=== PATIENT | male | born 1955 | race Two or more races ===

== ENCOUNTER 2021-01-15 15:48 | Inpatient (IN) | payer MEDICAID ==
[~2021-01-15] VITALS: Ht 182.9 cm; Wt 82.5 kg
[2021-01-15] MEDS ORDERED: methylPREDNISolone SOD SUCC 125 MG/2 ML VL IV ONE (16:30)
[2021-01-15 16:32] LABS: Basophils # (auto) 0 10 ^3/uL (0-0.2); Basophils % (auto) 0.3 % (0.0-2.0); Eosinophils # (auto) 0 10 ^3/uL (0-0.8); Eosinophils % (auto) 0.3 % (0.0-7.0); Hematocrit 40.3 % (41.0-53.0); Hemoglobin 13.4 g/dL (13.5-17.5); Lymphocytes # (auto) 0.6 10 ^3/uL (0.4-5.4); Lymphocytes % (auto) 4.5 % (10.0-50.0); Mean Corpuscular Hemoglobin 30.5 pg (28.0-32.0); Mean Corpuscular Hgb Conc. 33.3 g/dL (32.0-36.0); Mean Corpuscular Volume 91.7 fL (80.0-100.0); Monocytes # (auto) 0.8 10 ^3/uL (0-1.3); Monocytes % (auto) 5.4 % (0.0-12.0); Neutrophils % (auto) 89.5 % (37.0-80.0); Nucleated Red Blood Cells % 0.2 %; Red Blood Cells 4.39 10^6/uL (4.5-5.90); Red Cell Distribution Width 13.5 % (11.8-14.3); White Blood Cell 14.5 10^3/uL (4.4-10.8)
[2021-01-15] MEDS ORDERED: AZITHROMYCIN 500MG/ 250ML 250 ML IV ONE (17:30)
[2021-01-15] MEDS ORDERED: CHOLECALCIFEROL (VITD3) 2,000 UNIT CAP/TAB PO ONE (17:30)
[2021-01-15] MEDS ORDERED: ASCORBIC ACID 500 MG TAB PO ONE (17:30)
[2021-01-15] MEDS ORDERED: ZINC SULFATE 220mg CAP or TAB PO ONE (17:30)
[2021-01-15] MEDS ORDERED: REMDESIVIR PER PHARMACY 0 ML IV SCH (17:30)
[2021-01-15 17:36] LABS: Albumin 1.8 g/dL (3.4-5.0); Calcium 7.3 mg/dL (8.5-10.1)
[2021-01-15 17:41] LABS: BUN/Creatinine Ratio 27.6; Bilirubin, Total 0.6 mg/dL (0.2-1.0)
[2021-01-15] MEDS ORDERED: ENOXAPARIN SOD 100 MG/1 ML SYRINGE SC ONE (17:45)
[2021-01-15 19:32] LABS: CRP High Sensitivity > 19.0 mg/dL (< 0.3)
[2021-01-15] MEDS ORDERED: HYDROcodone-ACET 5/325MG TAB PO PRN (21:45)
[2021-01-15] MEDS ORDERED: DOCUSATE SOD 100 MG CAP PO PRN (21:45)
[2021-01-15] MEDS ORDERED: ALBUTEROL SULF HFA 90MCG INH 200DOSE IN PRN (21:45)
[2021-01-15] MEDS ORDERED: hydrALAZINE HCL 20 MG/ML VL IV PRN (21:45)
[2021-01-15] MEDS ORDERED: ACETAMINOPHEN 500 MG TAB PO PRN (21:45)
[2021-01-15] MEDS ORDERED: ONDANSETRON HCL 4 MG/2 ML VIAL IV PRN (21:45)
[2021-01-15 21:54] VITALS: BP 124/62
[2021-01-15] MEDS ORDERED: BUDESONIDE (INHALATION) 180 MCG IH IN SCH (22:00)
[2021-01-15] MEDS: SODIUM CHLOR 0.9% PF (SALINE LOCK) 10ML VIAL/SYR IV SCH (22:11)
[2021-01-15] MEDS: ALBUMIN 25% 50 ML IV SCH (22:39)
[2021-01-15] MEDS: FAMOTIDINE (10MG/ML) 2ML VL IV SCH (22:45)
[2021-01-15] MEDS: methylPREDNISolone SOD SUCC 40 MG/ML VL IV SCH (22:46)
[2021-01-15] MEDS ORDERED: MORPHINE SULFATE INJECTION 2 MG/ML SYRG IV PRN (23:45)
[2021-01-15] MEDS ORDERED: NITROGLYCERIN 0.4 MG SL TAB SL PRN (23:45)
[2021-01-16] MEDS: SODIUM CHLOR 0.9% PF (SALINE LOCK) 10ML VIAL/SYR IV SCH ×3 (06:00→22:22)
[2021-01-16] MEDS: ALBUMIN 25% 50 ML IV SCH ×2 (07:02→14:42)
[2021-01-16] MEDS: methylPREDNISolone SOD SUCC 40 MG/ML VL IV SCH ×2 (07:03→14:42)
[2021-01-16] MEDS ORDERED: cefTRIAXone 1GM/50ML D5W 50 ML IV SCH (09:00)
[2021-01-16 09:44] LABS: Basophils # (auto) 0 10 ^3/uL (0-0.2); Basophils % (auto) 0.2 % (0.0-2.0); Eosinophils # (auto) 0 10 ^3/uL (0-0.8); Hemoglobin 11.9 g/dL (13.5-17.5); Lymphocytes # (auto) 0.5 10 ^3/uL (0.4-5.4); Lymphocytes % (auto) 5.2 % (10.0-50.0); Mean Corpuscular Hemoglobin 30.6 pg (28.0-32.0); Mean Corpuscular Volume 92.7 fL (80.0-100.0); Monocytes # (auto) 0.2 10 ^3/uL (0-1.3); Monocytes % (auto) 2.3 % (0.0-12.0); Neutrophils # (auto) 9.3 10 ^3/uL (1.6-8.6); Neutrophils % (auto) 92.3 % (37.0-80.0); Nucleated Red Blood Cells % 0.1 %; Red Blood Cells 3.88 10^6/uL (4.5-5.90); Red Cell Distribution Width 13.8 % (11.8-14.3); White Blood Cell 10.1 10^3/uL (4.4-10.8)
[2021-01-16] MEDS: FAMOTIDINE (10MG/ML) 2ML VL IV SCH ×2 (09:57→22:23)
[2021-01-16] MEDS: ASPirin 81 mg TAB PO SCH (09:58)
[2021-01-16] MEDS: MULTIPLE VITAMIN TAB PO SCH (09:58)
[2021-01-16] MEDS ORDERED: ASCORBIC ACID 1,000 MG TAB PO SCH (10:00)
[2021-01-16] MEDS ORDERED: CHOLECALCIFEROL (VITD3) 2,000 UNIT CAP/TAB PO SCH (10:00)
[2021-01-16] MEDS ORDERED: ZINC SULFATE 220mg CAP or TAB PO SCH (10:00)
[2021-01-16] MEDS ORDERED: IOHEXOL 350 MG/ML 100ML IJ ONE (10:04)
[2021-01-16 10:51] LABS: Albumin 1.9 g/dL (3.4-5.0); Calcium 7.2 mg/dL (8.5-10.1); Potassium 3.8 mmol/L (3.5-5.1)
[2021-01-16 10:56] LABS: BUN/Creatinine Ratio 32.2; Bilirubin, Total 0.5 mg/dL (0.2-1.0); Total Protein 6.7 g/dL (6.4-8.2)
[2021-01-16] MEDS: AZITHROMYCIN 500MG/ 250ML 250 ML IV SCH (11:28)
[2021-01-16] MEDS ORDERED: ENOXAPARIN SOD 100 MG/1 ML SYRINGE SC ONE (12:30)
[2021-01-16 20:50] VITALS: BP 125/70
[2021-01-16 22:00] VITALS: BP 125/70
[2021-01-16] MEDS: PIPERACILLIN-TAZO 4.5GM 100 ML IV SCH (22:22)
[2021-01-16] MEDS: ENOXAPARIN SOD 100 MG/1 ML SYRINGE SC SCH (22:22)
[2021-01-17 00:09] LABS: Urine Bacteria NONE SEEN /hpf (None Seen); Urine Blood Negative /uL (Negative); Urine Specific Gravity 1.032 (1.001-1.035); Urine WBC 1 /hpf (0 - 3)
[2021-01-17 05:00] VITALS: BP 113/59
[2021-01-17] MEDS: PIPERACILLIN-TAZO 4.5GM 100 ML IV SCH ×3 (05:04→21:17)
[2021-01-17] MEDS: SODIUM CHLOR 0.9% PF (SALINE LOCK) 10ML VIAL/SYR IV SCH ×3 (05:04→21:16)
[2021-01-17 05:56] LABS: Basophils # (auto) 0 10 ^3/uL (0-0.2); Basophils % (auto) 0.2 % (0.0-2.0); Eosinophils # (auto) 0 10 ^3/uL (0-0.8); Hematocrit 33.6 % (41.0-53.0); Hemoglobin 11.5 g/dL (13.5-17.5); Lymphocytes # (auto) 0.7 10 ^3/uL (0.4-5.4); Lymphocytes % (auto) 4.5 % (10.0-50.0); Mean Corpuscular Hemoglobin 31.6 pg (28.0-32.0); Mean Corpuscular Hgb Conc. 34.2 g/dL (32.0-36.0); Mean Corpuscular Volume 92.4 fL (80.0-100.0); Monocytes # (auto) 1.1 10 ^3/uL (0-1.3); Monocytes % (auto) 6.5 % (0.0-12.0); Neutrophils # (auto) 14.9 10 ^3/uL (1.6-8.6); Neutrophils % (auto) 88.8 % (37.0-80.0); Red Blood Cells 3.63 10^6/uL (4.5-5.90); Red Cell Distribution Width 13.7 % (11.8-14.3); White Blood Cell 16.7 10^3/uL (4.4-10.8)
[2021-01-17 08:00] VITALS: BP 106/66
[2021-01-17 09:00] VITALS: BP 106/66
[2021-01-17] MEDS ORDERED: methylPREDNISolone SOD SUCC 40 MG/ML VL IV SCH (10:00)
[2021-01-17] MEDS: AZITHROMYCIN 500MG/ 250ML 250 ML IV SCH (10:47)
[2021-01-17] MEDS: MULTIPLE VITAMIN TAB PO SCH (10:47)
[2021-01-17] MEDS: FAMOTIDINE (10MG/ML) 2ML VL IV SCH ×2 (10:47→21:16)
[2021-01-17] MEDS: ASPirin 81 mg TAB PO SCH (10:47)
[2021-01-17] MEDS: ENOXAPARIN SOD 100 MG/1 ML SYRINGE SC SCH ×2 (10:48→21:17)
[2021-01-17 14:14] VITALS: BP 114/66
[2021-01-17 16:38] VITALS: BP 114/66
[2021-01-17] MEDS: MORPHINE SULFATE INJECTION 2 MG/ML SYRG IV PRN (20:32)
[2021-01-17 22:09] VITALS: BP 118/63
[2021-01-18] MEDS: MORPHINE SULFATE INJECTION 2 MG/ML SYRG IV PRN ×4 (00:30→23:34)
[2021-01-18 05:26] VITALS: BP 134/76
[2021-01-18] MEDS: SODIUM CHLOR 0.9% PF (SALINE LOCK) 10ML VIAL/SYR IV SCH ×3 (05:27→22:12)
[2021-01-18] MEDS: PIPERACILLIN-TAZO 4.5GM 100 ML IV SCH ×3 (05:36→22:00)
[2021-01-18 08:00] VITALS: BP 131/69
[2021-01-18 09:09] VITALS: BP 131/69
[2021-01-18] MEDS: MULTIPLE VITAMIN TAB PO SCH (09:47)
[2021-01-18] MEDS: FAMOTIDINE (10MG/ML) 2ML VL IV SCH ×2 (09:47→22:11)
[2021-01-18] MEDS: AZITHROMYCIN 500MG/ 250ML 250 ML IV SCH (09:47)
[2021-01-18] MEDS: ENOXAPARIN SOD 100 MG/1 ML SYRINGE SC SCH ×2 (09:47→22:12)
[2021-01-18] MEDS: ASPirin 81 mg TAB PO SCH (09:47)
[2021-01-18 14:08] VITALS: BP 126/70
[2021-01-18 16:34] VITALS: BP 122/72
[2021-01-18 23:03] VITALS: BP 113/65
[2021-01-19] MEDS: MORPHINE SULFATE INJECTION 2 MG/ML SYRG IV PRN ×5 (04:03→21:27)
[2021-01-19] MEDS: PIPERACILLIN-TAZO 4.5GM 100 ML IV SCH (05:01)
[2021-01-19] MEDS: SODIUM CHLOR 0.9% PF (SALINE LOCK) 10ML VIAL/SYR IV SCH ×3 (05:01→21:25)
[2021-01-19 05:30] VITALS: BP 135/73
[2021-01-19 06:30] LABS: Basophils # (auto) 0 10 ^3/uL (0-0.2); Basophils % (auto) 0.2 % (0.0-2.0); Eosinophils # (auto) 0.1 10 ^3/uL (0-0.8); Eosinophils % (auto) 1.4 % (0.0-7.0); Hematocrit 37.5 % (41.0-53.0); Hemoglobin 12.2 g/dL (13.5-17.5); Lymphocytes # (auto) 0.8 10 ^3/uL (0.4-5.4); Mean Corpuscular Hemoglobin 30.5 pg (28.0-32.0); Mean Corpuscular Hgb Conc. 32.6 g/dL (32.0-36.0); Mean Corpuscular Volume 93.5 fL (80.0-100.0); Monocytes # (auto) 0.6 10 ^3/uL (0-1.3); Monocytes % (auto) 6.8 % (0.0-12.0); Neutrophils # (auto) 6.7 10 ^3/uL (1.6-8.6); Neutrophils % (auto) 81.6 % (37.0-80.0); Nucleated Red Blood Cells % 0.1 %; Red Blood Cells 4.02 10^6/uL (4.5-5.90); White Blood Cell 8.2 10^3/uL (4.4-10.8)
[2021-01-19 06:50] LABS: Calcium 7.6 mg/dL (8.5-10.1); Potassium 4.7 mmol/L (3.5-5.1)
[2021-01-19 06:54] LABS: Albumin 2.1 g/dL (3.4-5.0); BUN/Creatinine Ratio 24.4
[2021-01-19 06:56] LABS: Bilirubin, Total 0.7 mg/dL (0.2-1.0); Total Protein 6.2 g/dL (6.4-8.2)
[2021-01-19 09:00] VITALS: BP 123/72
[2021-01-19] MEDS: FAMOTIDINE (10MG/ML) 2ML VL IV SCH ×2 (09:53→21:25)
[2021-01-19] MEDS: ASPirin 81 mg TAB PO SCH (09:54)
[2021-01-19] MEDS: MULTIPLE VITAMIN TAB PO SCH (09:54)
[2021-01-19] MEDS: ENOXAPARIN SOD 100 MG/1 ML SYRINGE SC SCH ×2 (09:54→21:26)
[2021-01-19] MEDS: AZITHROMYCIN 500MG/ 250ML 250 ML IV SCH (10:00)
[2021-01-19] MEDS ORDERED: REMDESIVIR PER PHARMACY 0 ML IV SCH (10:45)
[2021-01-19 13:00] VITALS: BP 115/66
[2021-01-19] MEDS ORDERED: CIPROFLOXACIN HCL 500 MG TAB PO ONE ×2 (13:00→22:00)
[2021-01-19] MEDS ORDERED: FUROSEMIDE 20 MG/2 ML VIAL IV ONE (13:00)
[2021-01-19] MEDS ORDERED: REMDESIVIR 200 MG in NS 210ml LOADING DOSE ADULT IV ONE (15:00)
[2021-01-19] MEDS: ERGOCALCIFEROL 50,000 UNIT(1.25MG) CAP PO SCH (15:20)
[2021-01-19 17:00] VITALS: BP 128/71
[2021-01-19] MEDS ORDERED: CIPROFLOXACIN HYDROCHLORIDE 250 MG TAB PO SCH (18:00)
[2021-01-19] MEDS: ALBUTEROL SULF HFA 90MCG INH 200DOSE IN PRN (20:14)
[2021-01-19 22:03] VITALS: BP 106/60
[2021-01-20] MEDS: MORPHINE SULFATE INJECTION 2 MG/ML SYRG IV PRN ×2 (01:17→05:15)
[2021-01-20 05:00] VITALS: BP 111/69
[2021-01-20] MEDS: SODIUM CHLOR 0.9% PF (SALINE LOCK) 10ML VIAL/SYR IV SCH ×3 (06:11→21:19)
[2021-01-20 06:30] LABS: Potassium 4.8 mmol/L (3.5-5.1)
[2021-01-20 06:48] LABS: Albumin 2.2 g/dL (3.4-5.0); BUN/Creatinine Ratio 22.5; Bilirubin, Total 0.7 mg/dL (0.2-1.0); Calcium 8.2 mg/dL (8.5-10.1); Total Protein 6.6 g/dL (6.4-8.2)
[2021-01-20] MEDS: ALBUTEROL SULF HFA 90MCG INH 200DOSE IN PRN ×2 (08:32→18:47)
[2021-01-20 09:00] VITALS: BP 120/71
[2021-01-20] MEDS ORDERED: IVERMECTIN 3 MG TAB PO SCH (10:00)
[2021-01-20] MEDS ORDERED: CHOLECALCIFEROL (VITD3) 2,000 UNIT CAP/TAB PO SCH (10:00)
[2021-01-20] MEDS: FUROSEMIDE 20 MG/2 ML VIAL IV SCH (10:17)
[2021-01-20] MEDS: DexAMETHasone SOD PHOS 10MG/1ML VIAL INJ IV SCH (10:17)
[2021-01-20] MEDS: CIPROFLOXACIN HCL 500 MG TAB PO SCH ×2 (10:17→17:29)
[2021-01-20] MEDS: FAMOTIDINE (10MG/ML) 2ML VL IV SCH ×2 (10:17→21:19)
[2021-01-20] MEDS: MULTIPLE VITAMIN TAB PO SCH (10:19)
[2021-01-20] MEDS: ENOXAPARIN SOD 100 MG/1 ML SYRINGE SC SCH ×2 (10:19→21:20)
[2021-01-20] MEDS: ASCORBIC ACID 1,000 MG TAB PO SCH (10:19)
[2021-01-20] MEDS: ZINC SULFATE 220mg CAP or TAB PO SCH (10:19)
[2021-01-20] MEDS: ASPirin 81 mg TAB PO SCH (10:19)
[2021-01-20] MEDS ORDERED: REMDESIVIR PER PHARMACY 0 ML IV SCH (11:45)
[2021-01-20 13:00] VITALS: BP 112/68
[2021-01-20] MEDS ORDERED: REMDESIVIR 100mg 100 MG in SODIUM CHL 0.9% 230 ML IV SCH (15:00)
[2021-01-20] MEDS ORDERED: REMDESIVIR 200 MG in NS 210ml LOADING DOSE ADULT IV ONE (15:00)
[2021-01-20 16:53] VITALS: BP 105/66
[2021-01-20 22:00] VITALS: BP 114/60
[2021-01-21] VITALS (7 sets, daily range): BP systolic 106–116; BP diastolic 61–71
[2021-01-21] MEDS: MORPHINE SULFATE INJECTION 2 MG/ML SYRG IV PRN ×3 (03:04→22:36)
[2021-01-21] MEDS: SODIUM CHLOR 0.9% PF (SALINE LOCK) 10ML VIAL/SYR IV SCH ×3 (06:07→21:34)
[2021-01-21 07:06] LABS: Potassium 4.6 mmol/L (3.5-5.1)
[2021-01-21 07:16] LABS: Albumin 2.3 g/dL (3.4-5.0); BUN/Creatinine Ratio 29.6; Bilirubin, Total 0.4 mg/dL (0.2-1.0); Total Protein 6.8 g/dL (6.4-8.2)
[2021-01-21] MEDS: CIPROFLOXACIN HCL 500 MG TAB PO SCH ×2 (08:02→17:38)
[2021-01-21] MEDS: FUROSEMIDE 20 MG/2 ML VIAL IV SCH ×2 (10:00→10:26)
[2021-01-21] MEDS: DexAMETHasone SOD PHOS 10MG/1ML VIAL INJ IV SCH (10:26)
[2021-01-21] MEDS: FAMOTIDINE (10MG/ML) 2ML VL IV SCH ×2 (10:27→21:33)
[2021-01-21] MEDS: ASPirin 81 mg TAB PO SCH (10:29)
[2021-01-21] MEDS: MULTIPLE VITAMIN TAB PO SCH (10:30)
[2021-01-21] MEDS: ASCORBIC ACID 1,000 MG TAB PO SCH (10:30)
[2021-01-21] MEDS: ZINC SULFATE 220mg CAP or TAB PO SCH (10:30)
[2021-01-21] MEDS: ENOXAPARIN SOD 100 MG/1 ML SYRINGE SC SCH ×2 (10:30→21:34)
[2021-01-21] MEDS: ALBUTEROL SULF HFA 90MCG INH 200DOSE IN PRN ×2 (13:59→21:48)
[2021-01-21] MEDS: REMDESIVIR 100mg 100 MG in SODIUM CHL 0.9% 230 ML IV SCH (15:15)
[2021-01-22] MEDS: OXYCODONE W/ ACETAMINOPHEN 5/325MG TABLET PO PRN (02:05)
[2021-01-22] MEDS: MORPHINE SULFATE INJECTION 2 MG/ML SYRG IV PRN ×2 (03:57→11:44)
[2021-01-22 05:00] VITALS: BP 111/65
[2021-01-22 06:04] LABS: Potassium 4.3 mmol/L (3.5-5.1)
[2021-01-22] MEDS: ALBUTEROL SULF HFA 90MCG INH 200DOSE IN PRN (06:08)
[2021-01-22 06:11] LABS: Albumin 2.2 g/dL (3.4-5.0); BUN/Creatinine Ratio 32.9; Bilirubin, Total 0.3 mg/dL (0.2-1.0); Calcium 7.8 mg/dL (8.5-10.1); Total Protein 6.3 g/dL (6.4-8.2)
[2021-01-22] MEDS: CIPROFLOXACIN HCL 500 MG TAB PO SCH ×2 (08:10→17:37)
[2021-01-22 08:40] VITALS: BP 117/66
[2021-01-22] MEDS: FUROSEMIDE 20 MG/2 ML VIAL IV SCH (10:00)
[2021-01-22] MEDS: ASCORBIC ACID 1,000 MG TAB PO SCH (10:14)
[2021-01-22 10:15] VITALS: BP 117/66
[2021-01-22] MEDS: MULTIPLE VITAMIN TAB PO SCH (10:15)
[2021-01-22] MEDS: DexAMETHasone SOD PHOS 10MG/1ML VIAL INJ IV SCH (10:26)
[2021-01-22] MEDS: FAMOTIDINE (10MG/ML) 2ML VL IV SCH ×2 (10:30→21:24)
[2021-01-22] MEDS: ENOXAPARIN SOD 100 MG/1 ML SYRINGE SC SCH ×2 (10:30→21:25)
[2021-01-22] MEDS: ASPirin 81 mg TAB PO SCH (10:30)
[2021-01-22] MEDS: ZINC SULFATE 220mg CAP or TAB PO SCH (11:05)
[2021-01-22 13:00] VITALS: BP 113/57
[2021-01-22] MEDS: SODIUM CHLOR 0.9% PF (SALINE LOCK) 10ML VIAL/SYR IV SCH ×3 (13:51→21:24)
[2021-01-22] MEDS: REMDESIVIR 100mg 100 MG in SODIUM CHL 0.9% 230 ML IV SCH (14:55)
[2021-01-22 17:00] VITALS: BP 106/62
[2021-01-22 22:00] VITALS: BP 111/71
[2021-01-23] VITALS (7 sets, daily range): BP systolic 110–123; BP diastolic 65–70
[2021-01-23] MEDS: MORPHINE SULFATE INJECTION 2 MG/ML SYRG IV PRN ×2 (00:17→04:12)
[2021-01-23] MEDS: SODIUM CHLOR 0.9% PF (SALINE LOCK) 10ML VIAL/SYR IV SCH ×3 (05:21→22:38)
[2021-01-23 06:10] LABS: Albumin 2.1 g/dL (3.4-5.0); BUN/Creatinine Ratio 31.3; Calcium 7.6 mg/dL (8.5-10.1); Potassium 4.2 mmol/L (3.5-5.1)
[2021-01-23 06:21] LABS: Bilirubin, Total 0.4 mg/dL (0.2-1.0); Total Protein 6.2 g/dL (6.4-8.2)
[2021-01-23] MEDS: CIPROFLOXACIN HCL 500 MG TAB PO SCH ×2 (08:58→17:34)
[2021-01-23] MEDS: ALBUTEROL SULF HFA 90MCG INH 200DOSE IN PRN (09:03)
[2021-01-23] MEDS: FUROSEMIDE 20 MG/2 ML VIAL IV SCH (10:00)
[2021-01-23] MEDS: DexAMETHasone SOD PHOS 10MG/1ML VIAL INJ IV SCH (11:05)
[2021-01-23] MEDS: MULTIPLE VITAMIN TAB PO SCH (11:05)
[2021-01-23] MEDS: ASPirin 81 mg TAB PO SCH (11:05)
[2021-01-23] MEDS: ASCORBIC ACID 1,000 MG TAB PO SCH (11:05)
[2021-01-23] MEDS: FAMOTIDINE (10MG/ML) 2ML VL IV SCH ×2 (11:05→22:37)
[2021-01-23] MEDS: ENOXAPARIN SOD 100 MG/1 ML SYRINGE SC SCH ×2 (11:06→22:38)
[2021-01-23] MEDS: ZINC SULFATE 220mg CAP or TAB PO SCH (11:08)
[2021-01-23] MEDS: REMDESIVIR 100mg 100 MG in SODIUM CHL 0.9% 230 ML IV SCH (14:50)
[2021-01-24] MEDS: MORPHINE SULFATE INJECTION 2 MG/ML SYRG IV PRN (01:55)
[2021-01-24 05:00] VITALS: BP 112/66
[2021-01-24] MEDS: SODIUM CHLOR 0.9% PF (SALINE LOCK) 10ML VIAL/SYR IV SCH ×3 (05:09→22:34)
[2021-01-24 08:46] VITALS: BP 128/73
[2021-01-24] MEDS: CIPROFLOXACIN HCL 500 MG TAB PO SCH ×2 (09:04→18:29)
[2021-01-24] MEDS: DexAMETHasone SOD PHOS 10MG/1ML VIAL INJ IV SCH (09:04)
[2021-01-24] MEDS: FAMOTIDINE (10MG/ML) 2ML VL IV SCH ×2 (09:05→22:34)
[2021-01-24] MEDS: ASCORBIC ACID 1,000 MG TAB PO SCH (09:06)
[2021-01-24] MEDS: MULTIPLE VITAMIN TAB PO SCH (09:06)
[2021-01-24] MEDS: ENOXAPARIN SOD 100 MG/1 ML SYRINGE SC SCH ×2 (09:06→22:35)
[2021-01-24] MEDS: ASPirin 81 mg TAB PO SCH (09:06)
[2021-01-24] MEDS: FUROSEMIDE 20 MG/2 ML VIAL IV SCH (09:07)
[2021-01-24] MEDS: ZINC SULFATE 220mg CAP or TAB PO SCH (10:30)
[2021-01-24 12:52] VITALS: BP 117/70
[2021-01-24] MEDS ORDERED: FUROSEMIDE 20 MG TAB PO ONE (15:00)
[2021-01-24] MEDS: REMDESIVIR 100mg 100 MG in SODIUM CHL 0.9% 230 ML IV SCH (15:43)
[2021-01-24 17:00] VITALS: BP 110/64
[2021-01-24 20:15] VITALS: BP 114/60
[2021-01-24 22:00] VITALS: BP 114/60
[2021-01-25 04:50] VITALS: BP 113/66
[2021-01-25] MEDS: SODIUM CHLOR 0.9% PF (SALINE LOCK) 10ML VIAL/SYR IV SCH ×3 (08:01→21:24)
[2021-01-25] MEDS: CIPROFLOXACIN HCL 500 MG TAB PO SCH ×2 (08:51→18:48)
[2021-01-25] MEDS: FAMOTIDINE (10MG/ML) 2ML VL IV SCH ×2 (08:52→21:24)
[2021-01-25] MEDS: ASPirin 81 mg TAB PO SCH (08:52)
[2021-01-25] MEDS: DexAMETHasone SOD PHOS 10MG/1ML VIAL INJ IV SCH (08:52)
[2021-01-25] MEDS: MULTIPLE VITAMIN TAB PO SCH (08:52)
[2021-01-25] MEDS: ENOXAPARIN SOD 100 MG/1 ML SYRINGE SC SCH ×2 (08:52→21:24)
[2021-01-25] MEDS: ASCORBIC ACID 1,000 MG TAB PO SCH (08:52)
[2021-01-25] MEDS: FUROSEMIDE 20 MG/2 ML VIAL IV SCH (08:53)
[2021-01-25 09:01] VITALS: BP 127/71
[2021-01-25] MEDS: ZINC SULFATE 220mg CAP or TAB PO SCH (11:30)
[2021-01-25 12:46] VITALS: BP 127/73
[2021-01-25 17:00] VITALS: BP 112/56
[2021-01-25 22:00] VITALS: BP 111/65
[2021-01-26 05:00] VITALS: BP 132/72
[2021-01-26] MEDS: ALBUTEROL SULF HFA 90MCG INH 200DOSE IN PRN (05:54)
[2021-01-26] MEDS: SODIUM CHLOR 0.9% PF (SALINE LOCK) 10ML VIAL/SYR IV SCH ×3 (06:00→21:55)
[2021-01-26] MEDS: MULTIPLE VITAMIN TAB PO SCH (08:35)
[2021-01-26] MEDS: ASCORBIC ACID 1,000 MG TAB PO SCH (08:35)
[2021-01-26] MEDS: ASPirin 81 mg TAB PO SCH (08:35)
[2021-01-26] MEDS: FAMOTIDINE (10MG/ML) 2ML VL IV SCH (08:36)
[2021-01-26] MEDS: DexAMETHasone SOD PHOS 10MG/1ML VIAL INJ IV SCH (08:36)
[2021-01-26] MEDS: FUROSEMIDE 20 MG/2 ML VIAL IV SCH ×2 (08:37→08:53)
[2021-01-26] MEDS: CIPROFLOXACIN HCL 500 MG TAB PO SCH ×2 (08:38→17:10)
[2021-01-26] MEDS: ENOXAPARIN SOD 100 MG/1 ML SYRINGE SC SCH ×2 (08:38→21:55)
[2021-01-26 09:00] VITALS: BP 127/70
[2021-01-26] MEDS: ZINC SULFATE 220mg CAP or TAB PO SCH (10:53)
[2021-01-26] MEDS: ERGOCALCIFEROL 50,000 UNIT(1.25MG) CAP PO SCH (13:35)
[2021-01-26 13:42] VITALS: BP 121/71
[2021-01-26] MEDS ORDERED: NITROGLYCERIN 2% OINT 1GM PKG TD ONE (14:30)
[2021-01-26 16:36] VITALS: BP 114/73
[2021-01-26 18:32] LABS: Basophils # (auto) 0 10 ^3/uL (0-0.2); Basophils % (auto) 0.2 % (0.0-2.0); Eosinophils # (auto) 0 10 ^3/uL (0-0.8); Eosinophils % (auto) 0.1 % (0.0-7.0); Hematocrit 36.3 % (41.0-53.0); Hemoglobin 12.1 g/dL (13.5-17.5); Lymphocytes % (auto) 12.4 % (10.0-50.0); Mean Corpuscular Hemoglobin 30.1 pg (28.0-32.0); Mean Corpuscular Hgb Conc. 33.2 g/dL (32.0-36.0); Mean Corpuscular Volume 90.9 fL (80.0-100.0); Monocytes # (auto) 0.4 10 ^3/uL (0-1.3); Monocytes % (auto) 5.3 % (0.0-12.0); Neutrophils # (auto) 6.4 10 ^3/uL (1.6-8.6); Red Cell Distribution Width 13.5 % (11.8-14.3); White Blood Cell 7.9 10^3/uL (4.4-10.8)
[2021-01-26] MEDS: FAMOTIDINE 20 MG TAB PO SCH (21:55)
[2021-01-26 22:00] VITALS: BP 117/66
[2021-01-27] MEDS: OXYCODONE W/ ACETAMINOPHEN 5/325MG TABLET PO PRN (04:46)
[2021-01-27 05:00] VITALS: BP 133/75
[2021-01-27] MEDS: SODIUM CHLOR 0.9% PF (SALINE LOCK) 10ML VIAL/SYR IV SCH ×3 (06:17→21:38)
[2021-01-27 06:40] LABS: Basophils # (auto) 0.1 10 ^3/uL (0-0.2); Basophils % (auto) 0.8 % (0.0-2.0); Eosinophils # (auto) 0.1 10 ^3/uL (0-0.8); Eosinophils % (auto) 1.3 % (0.0-7.0); Hematocrit 35.2 % (41.0-53.0); Hemoglobin 11.9 g/dL (13.5-17.5); Lymphocytes # (auto) 2.2 10 ^3/uL (0.4-5.4); Lymphocytes % (auto) 23.5 % (10.0-50.0); Mean Corpuscular Hemoglobin 30.5 pg (28.0-32.0); Mean Corpuscular Hgb Conc. 33.8 g/dL (32.0-36.0); Mean Corpuscular Volume 90.4 fL (80.0-100.0); Monocytes # (auto) 0.8 10 ^3/uL (0-1.3); Monocytes % (auto) 8.4 % (0.0-12.0); Neutrophils # (auto) 6.2 10 ^3/uL (1.6-8.6); Nucleated Red Blood Cells % 0.1 %; Red Blood Cells 3.89 10^6/uL (4.5-5.90); Red Cell Distribution Width 13.8 % (11.8-14.3); White Blood Cell 9.4 10^3/uL (4.4-10.8)
[2021-01-27 07:02] LABS: BUN/Creatinine Ratio 31.2
[2021-01-27] MEDS: DexAMETHasone SOD PHOS 10MG/1ML VIAL INJ IV SCH (08:53)
[2021-01-27] MEDS: ASPirin 81 mg TAB PO SCH (08:54)
[2021-01-27] MEDS: FUROSEMIDE 20 MG/2 ML VIAL IV SCH (08:54)
[2021-01-27] MEDS: FAMOTIDINE 20 MG TAB PO SCH ×2 (08:55→21:49)
[2021-01-27] MEDS: ASCORBIC ACID 1,000 MG TAB PO SCH (08:55)
[2021-01-27] MEDS: ENOXAPARIN SOD 100 MG/1 ML SYRINGE SC SCH ×2 (08:55→21:49)
[2021-01-27] MEDS: MULTIPLE VITAMIN TAB PO SCH (08:55)
[2021-01-27] MEDS: CIPROFLOXACIN HCL 500 MG TAB PO SCH ×2 (08:56→16:56)
[2021-01-27] MEDS: ALBUTEROL SULF HFA 90MCG INH 200DOSE IN PRN (09:18)
[2021-01-27] MEDS: ZINC SULFATE 220mg CAP or TAB PO SCH (11:24)
[2021-01-27 17:00] VITALS: BP 121/67
[2021-01-27 17:48] VITALS: BP 118/69
[2021-01-27 22:00] VITALS: BP 104/67
[2021-01-28 05:00] VITALS: BP 110/65
[2021-01-28] MEDS: SODIUM CHLOR 0.9% PF (SALINE LOCK) 10ML VIAL/SYR IV SCH (05:20)
[2021-01-28] MEDS: CIPROFLOXACIN HCL 500 MG TAB PO SCH (08:00)
[2021-01-28] MEDS: DexAMETHasone SOD PHOS 10MG/1ML VIAL INJ IV SCH (08:55)
[2021-01-28] MEDS: FUROSEMIDE 20 MG/2 ML VIAL IV SCH (08:56)
[2021-01-28] MEDS: FAMOTIDINE 20 MG TAB PO SCH (08:56)
[2021-01-28] MEDS: ASPirin 81 mg TAB PO SCH (08:56)
[2021-01-28] MEDS: MULTIPLE VITAMIN TAB PO SCH (08:56)
[2021-01-28] MEDS: ZINC SULFATE 220mg CAP or TAB PO SCH (08:57)
[2021-01-28] MEDS: ASCORBIC ACID 1,000 MG TAB PO SCH (08:57)
[2021-01-28] MEDS: ENOXAPARIN SOD 100 MG/1 ML SYRINGE SC SCH (08:57)
[2021-01-28 09:16] VITALS: BP 132/71
== END 2021-01-28 10:30 | disposition home or self-care (01) | DRG 720 ==
LOC: ER 15:48 → TELE 23:37 → TELE-EAST 01-16 21:28
PROVIDERS: ADMIT Nurse Practitioner Family; ATTEND Internal Medicine
PROC: XW033E5 Introduction of Remdesivir Anti-infective into Peripheral Vein, Percutaneous Approach, New Technology Group 5 (ICD-10-PCS; principal; 2021-01-15)
DX: A41.89 Other specified sepsis (principal); J96.01 Acute respiratory failure with hypoxia; J12.82 Pneumonia due to coronavirus disease 2019; J15.1 Pneumonia due to Pseudomonas; I82.403 Acute embolism and thrombosis of unspecified deep veins of lower extremity, bilateral; U07.1 COVID-19; D68.59 Other primary thrombophilia; D69.6 Thrombocytopenia, unspecified; D89.839 Cytokine release syndrome, grade unspecified; E88.09 Other disorders of plasma-protein metabolism, not elsewhere classified; I99.8 Other disorder of circulatory system; Z53.20 Procedure and treatment not carried out because of patient's decision for unspecified reasons; J44.0 Chronic obstructive pulmonary disease with (acute) lower respiratory infection; N28.9 Disorder of kidney and ureter, unspecified; Z79.01 Long term (current) use of anticoagulants; Z79.899 Other long term (current) drug therapy
CPT/HCPCS: 36415; 36600; 71045; 71275; 80048; 80053; 81001; 82306; 82728; 82805; 83036; 83605; 83615; 83735; 83880; 84484; 85025; 85362; 85379; 85652; 86141; 86850; 86900; 86901; 87040; 87070; 87077; 87186; 87205; 87426; 93005; 93306; 93970; 94640; 96365; 96367; 96372; 96375; 99291; G0378; J0696; J1100; J2543; J3490

== ENCOUNTER 2021-02-06 11:49 | Emergency (ER) | payer MEDICAID ==
[~2021-02-06] VITALS: Ht 182.9 cm; Wt 82.1 kg
[2021-02-06 12:06] VITALS: BP 122/72
== END 2021-02-06 12:38 | disposition left against medical advice (07) ==
LOC: ER 11:49
DX: M79.10 Myalgia, unspecified site (principal); Z53.21 Procedure and treatment not carried out due to patient leaving prior to being seen by health care provider

== ENCOUNTER → 2021-03-18 | Outpatient (CLI) | payer MEDICAID ==
[2021-03-18 11:20] LABS: Basophils # (auto) 0 10 ^3/uL (0-0.2); Basophils % (auto) 0.7 % (0.0-2.0); Eosinophils # (auto) 0.2 10 ^3/uL (0-0.8); Eosinophils % (auto) 3.9 % (0.0-7.0); Hemoglobin 13.3 g/dL (13.5-17.5); Lymphocytes # (auto) 1.8 10 ^3/uL (0.4-5.4); Lymphocytes % (auto) 35.1 % (10.0-50.0); Mean Corpuscular Hemoglobin 31.3 pg (28.0-32.0); Mean Corpuscular Hgb Conc. 34.1 g/dL (32.0-36.0); Mean Corpuscular Volume 91.8 fL (80.0-100.0); Monocytes # (auto) 0.5 10 ^3/uL (0-1.3); Monocytes % (auto) 9.6 % (0.0-12.0); Neutrophils # (auto) 2.7 10 ^3/uL (1.6-8.6); Neutrophils % (auto) 50.7 % (37.0-80.0); Nucleated Red Blood Cells % 0.1 %; Red Blood Cells 4.25 10^6/uL (4.5-5.90); Red Cell Distribution Width 14.6 % (11.8-14.3); White Blood Cell 5.2 10^3/uL (4.4-10.8)
[2021-03-18 11:34] LABS: INR 0.98 (0.9-1.15); Partial Thromboplastin Time 24.1 sec (23.6-33.0)
[2021-03-18 11:44] LABS: Urine Bacteria NONE SEEN /hpf (None Seen); Urine Blood Negative /uL (Negative); Urine Mucus FEW (None Seen); Urine Specific Gravity 1.027 (1.001-1.035); Urine WBC 1 /hpf (0 - 3)
[2021-03-18 12:34] LABS: Albumin 3.7 g/dL (3.4-5.0); Calcium 9.4 mg/dL (8.5-10.1); Potassium 4.2 mmol/L (3.5-5.1)
[2021-03-18 12:39] LABS: Bilirubin, Total 0.4 mg/dL (0.2-1.0); Total Protein 7.8 g/dL (6.4-8.2)
== END | disposition home or self-care (01) ==
LOC: LAB 10:05
PROVIDERS: ATTEND Student in an Organized Health Care Education/Training Program
DX: Z01.812 Encounter for preprocedural laboratory examination (principal); D68.69 Other thrombophilia; R73.9 Hyperglycemia, unspecified
CPT/HCPCS: 36415; 80053; 81001; 83036; 85025; 85610; 85730

== ENCOUNTER → 2021-04-07 | Outpatient (CLI) | payer MEDICARE, MEDICAID | END | disposition home or self-care (01) | LOC: Rad HDHVI 12:56 | PROVIDERS: ATTEND Internal Medicine Cardiovascular Disease | DX: R07.89 Other chest pain (principal); R00.2 Palpitations | CPT/HCPCS: 93306 ==

== ENCOUNTER → 2021-04-20 | Outpatient (CLI) | payer MEDICARE, MEDICAID ==
[~2021-04-20] VITALS: Ht 182.9 cm; Wt 81.6 kg
== END | disposition home or self-care (01) ==
LOC: Rad HDHVI 13:39
PROVIDERS: ATTEND Internal Medicine Cardiovascular Disease
DX: Z01.810 Encounter for preprocedural cardiovascular examination (principal)
CPT/HCPCS: 78452; 93017; 96374; A9500

== ENCOUNTER → 2022-02-06 | Day surgery (SDC) | payer MEDICARE, MEDICAID ==
[~2022-02-06] VITALS: Ht 182.9 cm; Wt 90.4 kg
[~2022-02-06] MED LIST: CLOP75TA28 PO; FAMOTIDINE (10MG/ML) 2ML VL IV ONE; GLUCAGON HYDROCHLORIDE (RDNA) 1 MG VIAL IM ONE; GLUCAGON HYDROCHLORIDE (RDNA) 1 MG VIAL IV ONE; LIDOCAINE VISCOUS 2% 15ML UD ONE; LIDOCAINE VISCOUS 2% 15ML UD PO ONE; POM; SODIUM CHLORIDE 0.9% 1,000 ML IV ONE
[2022-02-06 16:07] LABS: Basophils # (auto) 0 10 ^3/uL (0-0.2); Basophils % (auto) 0.6 % (0.0-2.0); Eosinophils # (auto) 0.3 10 ^3/uL (0-0.8); Eosinophils % (auto) 4.8 % (0.0-7.0); Hematocrit 42.4 % (41.0-53.0); Hemoglobin 14.5 g/dL (13.5-17.5); Lymphocytes # (auto) 1.6 10 ^3/uL (0.4-5.4); Mean Corpuscular Hemoglobin 31.4 pg (28.0-32.0); Mean Corpuscular Hgb Conc. 34.2 g/dL (32.0-36.0); Mean Corpuscular Volume 91.8 fL (80.0-100.0); Monocytes # (auto) 0.4 10 ^3/uL (0-1.3); Monocytes % (auto) 6.4 % (0.0-12.0); Neutrophils # (auto) 4.7 10 ^3/uL (1.6-8.6); Neutrophils % (auto) 66.2 % (37.0-80.0); Red Blood Cells 4.62 10^6/uL (4.5-5.90); Red Cell Distribution Width 12.9 % (11.8-14.3); White Blood Cell 7.1 10^3/uL (4.4-10.8)
[2022-02-06 16:21] LABS: INR 1.01 (0.9-1.15)
[2022-02-06 16:23] LABS: Calcium 9.4 mg/dL (8.5-10.1); Potassium 4.4 mmol/L (3.5-5.1)
[2022-02-06 16:26] LABS: BUN/Creatinine Ratio 18.6; Bilirubin, Total 0.8 mg/dL (0.2-1.0); Total Protein 8.4 g/dL (6.4-8.2)
[2022-02-06] MEDS: MIDAZOLAM HCL 2MG/2ML 2ml VIAL (1mg/ml) ONE ×4 (17:14→17:28)
[2022-02-06] MEDS: diphenhdrAMINE HCL 50 MG/1 ML VL ONE ×2 (17:14→17:15)
[2022-02-06] MEDS: fentaNYL CITRATE 100 MCG/2 ML VL ONE ×3 (17:14→17:20)
[2022-02-06 17:55] VITALS: BP 120/63
== END | disposition home or self-care (01) ==
LOC: ER 13:28 → GI 17:46 → ER 19:30
PROVIDERS: ATTEND Internal Medicine Gastroenterology
DX: T18.128A Food in esophagus causing other injury, initial encounter (principal); K44.9 Diaphragmatic hernia without obstruction or gangrene; K25.9 Gastric ulcer, unspecified as acute or chronic, without hemorrhage or perforation; K29.90 Gastroduodenitis, unspecified, without bleeding; K22.10 Ulcer of esophagus without bleeding; Z20.822 Contact with and (suspected) exposure to COVID-19; J44.9 Chronic obstructive pulmonary disease, unspecified; M79.7 Fibromyalgia
CPT/HCPCS: 36415; 43239; 43247; 80053; 85025; 85610; 87426; 88305; 88312; 88342; 96361; 96372; 96374; 96375; 99284; J1200; J1610; J2250; J3010; J3490; J7030

== ENCOUNTER → 2022-03-03 | Outpatient (CLI) | payer MEDICARE, MEDICAID ==
[~2022-03-03] MED LIST changes: -FAMOTIDINE (10MG/ML) 2ML VL IV ONE; -GLUCAGON HYDROCHLORIDE (RDNA) 1 MG VIAL IM ONE; -GLUCAGON HYDROCHLORIDE (RDNA) 1 MG VIAL IV ONE; -LIDOCAINE VISCOUS 2% 15ML UD ONE; -LIDOCAINE VISCOUS 2% 15ML UD PO ONE; -SODIUM CHLORIDE 0.9% 1,000 ML IV ONE
[2022-03-03 09:15] VITALS: BP 158/74
[2022-03-03 09:35] VITALS: BP 152/78
[2022-03-03 11:39] LABS: Basophils # (auto) 0 10 ^3/uL (0-0.2); Basophils % (auto) 0.6 % (0.0-2.0); Eosinophils # (auto) 0.6 10 ^3/uL (0-0.8); Eosinophils % (auto) 11.2 % (0.0-7.0); Hematocrit 42.2 % (41.0-53.0); Hemoglobin 14.1 g/dL (13.5-17.5); Lymphocytes # (auto) 2.1 10 ^3/uL (0.4-5.4); Lymphocytes % (auto) 36.8 % (10.0-50.0); Mean Corpuscular Hemoglobin 31.2 pg (28.0-32.0); Mean Corpuscular Hgb Conc. 33.4 g/dL (32.0-36.0); Mean Corpuscular Volume 93.4 fL (80.0-100.0); Monocytes # (auto) 0.6 10 ^3/uL (0-1.3); Monocytes % (auto) 10.2 % (0.0-12.0); Neutrophils # (auto) 2.4 10 ^3/uL (1.6-8.6); Neutrophils % (auto) 41.2 % (37.0-80.0); Red Blood Cells 4.52 10^6/uL (4.5-5.90); Red Cell Distribution Width 12.9 % (11.8-14.3); White Blood Cell 5.8 10^3/uL (4.4-10.8)
[2022-03-03 11:42] LABS: INR 0.96 (0.9-1.15); Partial Thromboplastin Time 23.8 sec (24.6-33.4)
[2022-03-03 12:26] LABS: BUN/Creatinine Ratio 19.7; Calcium 9.3 mg/dL (8.5-10.1); Potassium 4.2 mmol/L (3.5-5.1)
== END | disposition home or self-care (01) ==
LOC: Rad HDHVI 08:58
PROVIDERS: ATTEND Internal Medicine Cardiovascular Disease
DX: R06.02 Shortness of breath (principal)
CPT/HCPCS: 36415; 71046; 80048; 85025; 85610; 85730; 93005; G0463

== ENCOUNTER 2022-03-04 07:10 | Day surgery (SDC) | payer MEDICARE, MEDICAID ==
[~2022-03-04] VITALS: Ht 182.9 cm; Wt 93.4 kg
[2022-03-04] VITALS (7 sets, daily range): BP systolic 124–152; BP diastolic 67–80
[2022-03-04] MEDS ORDERED: ANGIOMAX 250 MG VIAL IV ONE (12:45)
[2022-03-04] MEDS ORDERED: MIDAZOLAM HCL 2MG/2ML 2ml VIAL (1mg/ml) ONE (12:46)
[2022-03-04] MEDS ORDERED: SODIUM CHL 0.9% 0 ML ONE (12:46)
[2022-03-04] MEDS ORDERED: fentaNYL CITRATE 100 MCG/2 ML VL ONE (12:46)
[2022-03-04] MEDS ORDERED: LIDOCAINE 2%HCL (LOCAL ANESTH.) INJ 20ML MDV ONE (12:47)
[2022-03-04] MEDS ORDERED: IOHEXOL 350 MG/ML 100ML IJ ONE (12:50)
== END 2022-03-04 15:37 | disposition home or self-care (01) ==
LOC: CATH 07:10
PROVIDERS: ATTEND Internal Medicine Cardiovascular Disease
DX: R07.89 Other chest pain (principal); I10 Essential (primary) hypertension; Z79.899 Other long term (current) drug therapy; Z20.822 Contact with and (suspected) exposure to COVID-19
CPT/HCPCS: 93458; C1760; C1894; C9803; J1644; J2250; J3010; J7030; Q9967; U0003; 99152

== ENCOUNTER 2022-10-21 07:01 | Day surgery (SDC) | payer MEDICARE, MEDICAID ==
[2022-10-20 09:38] LABS: Basophils # (auto) 0.1 10 ^3/uL (0-0.2); Basophils % (auto) 1.2 % (0.0-2.0); Eosinophils # (auto) 0.4 10 ^3/uL (0-0.8); Eosinophils % (auto) 6.1 % (0.0-7.0); Hematocrit 39.9 % (41.0-53.0); Hemoglobin 13.5 g/dL (13.5-17.5); Lymphocytes # (auto) 2.1 10 ^3/uL (0.4-5.4); Mean Corpuscular Hemoglobin 31.3 pg (28.0-32.0); Mean Corpuscular Hgb Conc. 33.8 g/dL (32.0-36.0); Mean Corpuscular Volume 92.8 fL (80.0-100.0); Monocytes # (auto) 0.6 10 ^3/uL (0-1.3); Monocytes % (auto) 8.9 % (0.0-12.0); Neutrophils # (auto) 3.4 10 ^3/uL (1.6-8.6); Neutrophils % (auto) 51.8 % (37.0-80.0); Red Cell Distribution Width 13.3 % (11.8-14.3); White Blood Cell 6.5 10^3/uL (4.4-10.8)
[2022-10-20 09:54] LABS: INR 1.02 (0.9-1.15); Partial Thromboplastin Time 23.9 SEC (24.5-34.5); Prothrombin Time 10.7 sec (9.3-11.8)
[2022-10-20 10:35] LABS: Calcium 9.2 mg/dL (8.5-10.1); Chloride 107 mmol/L (98-107); Potassium 4.5 mmol/L (3.5-5.1); Sodium 141 mmol/L (136-145)
[2022-10-20 10:36] LABS: Anion Gap 4.9 (5-15); Carbon Dioxide 29.1 mmol/L (20-30)
[2022-10-20 10:41] LABS: BUN/Creatinine Ratio 14.2 (10.0-20.0); Blood Urea Nitrogen 15 mg/dL (9-23); Glucose 89 mg/dL (74-106)
[~2022-10-21] VITALS: Ht 182.9 cm; Wt 90.7 kg
[2022-10-21] MEDS ORDERED: ANGIOMAX 250 MG VIAL IV ONE (08:45)
[2022-10-21] MEDS ORDERED: SODIUM CHL 0.9% 0 ML ONE (08:46)
[2022-10-21] MEDS ORDERED: IOHEXOL 350 MG/ML 100ML IJ ONE (08:46)
[2022-10-21] MEDS ORDERED: MIDAZOLAM HCL 2MG/2ML 2ml VIAL (1mg/ml) ONE (08:46)
[2022-10-21] MEDS ORDERED: fentaNYL CITRATE 100 MCG/2 ML VL ONE (08:46)
[2022-10-21] MEDS ORDERED: LIDOCAINE 2%HCL (LOCAL ANESTH.) INJ 20ML MDV ONE (08:46)
== END 2022-10-21 10:45 | disposition home or self-care (01) ==
LOC: CATH 07:01
PROVIDERS: ATTEND Internal Medicine Cardiovascular Disease
DX: I73.9 Peripheral vascular disease, unspecified (principal); M54.59 Other low back pain; G62.89 Other specified polyneuropathies; J44.9 Chronic obstructive pulmonary disease, unspecified; Z87.891 Personal history of nicotine dependence
CPT/HCPCS: 36247; 36415; 75716; 80048; 85025; 85610; 85730; C1769; C1887; C1894; J1644; J2250; J3010; Q9967; 99152; 99153

== ENCOUNTER → 2023-11-14 | Outpatient (CLI) | payer MEDICARE, MEDICAID | END | disposition home or self-care (01) | LOC: Rad HDHVI 14:21 | PROVIDERS: ATTEND Internal Medicine Cardiovascular Disease | DX: I10 Essential (primary) hypertension (principal); I73.9 Peripheral vascular disease, unspecified | CPT/HCPCS: 93306; 93970 ==

== ENCOUNTER → 2023-12-16 | Outpatient (CLI) | payer MEDICARE, MEDICAID ==
[~2023-12-16] VITALS: Ht 182.9 cm; Wt 88.5 kg
== END | disposition home or self-care (01) ==
LOC: Rad HDHVI 09:22
PROVIDERS: ATTEND Internal Medicine Cardiovascular Disease
DX: I25.119 Atherosclerotic heart disease of native coronary artery with unspecified angina pectoris (principal); R94.31 Abnormal electrocardiogram [ECG] [EKG]; I25.5 Ischemic cardiomyopathy; I49.9 Cardiac arrhythmia, unspecified; J44.9 Chronic obstructive pulmonary disease, unspecified; I27.21 Secondary pulmonary arterial hypertension; I49.3 Ventricular premature depolarization; I49.1 Atrial premature depolarization
CPT/HCPCS: 78452; 93017; 96374; A9500

== ENCOUNTER → 2024-01-06 | Day surgery (SDC) | payer MEDICARE, MEDICAID ==
[~2024-01-06] MED LIST changes: +ACETAMINOPHEN 325 MG TAB PO PRN; -CLOP75TA28 PO; +GLUCAGON EMERG KIT 1mg/1ml IV ONE; +MORPHINE SULFATE INJ 2 MG/ml SYRG IV PRN; +NITROGLYCERIN 0.4 MG SL TAB SL ONE; +NITROGLYCERIN 0.4 MG SL TAB SL PRN; +ONDANSETRON HCL 4 MG/2 ML VIAL IV ONE; +PANTOPRAZOLE 40 MG/10 ML VIAL INJ IV ONE; +PANTOPRAZOLE 40 MG/10 ML VIAL INJ IV SCH; -POM; +PROPOFOL 10 MG/ML 20 ML IV ONE; +SODIUM CHLORIDE 0.9% 1,000 ML IV ONE; +SODIUM CHLORIDE 0.9% 1,000 ML IV SCH; +SUCCINYLCHOLINE CHLORIDE 20 MG/ML 10ML VIAL IV ONE; +fentaNYL CITRATE 100 MCG/2 ML VL ONE
--- NOTE | 2024-01-06 15:39 | ED.PDOC ---
Foreign Body HPI Comments HPI: Poor Historian. 68 y.o male presents to the ED for an evaluation of a foreign body. Patient reports 2 days ago. he was eating chicken and bone got lodged in his throat. Patient is unable to pass saliva, food or fluids. Patient denies any SOB but does complain of throat discomfort. Patient states this is the fifth time foreign object gets lodged and states he usually is taken to surgically remove it. No other complaints at this time. Patient is on Xeralto for DVT but has not taken the medication x 2 days due to difficulty swallowing. Patient reports allergies to Hydrocodone Vitals BP: 1235/76 HR: 98 Temp: 98.9 F SpO2: 93% RA RR: 20 Past medical history: Left left DVT, on Xeralto Past surgical history: Multiple foreign body surgical removals REVIEW OF SYSTEMS: CONSTITUTIONAL: Denies acute: fever, diaphoresis, chills, generalized weakness. HEAD: Denies acute: headache, photophobia Eyes: Denies acute: Double vision, vision loss, eye pain, eye discharge. EARS: Denies acute: tinnitus, hearing loss, ear discharge, ear pain, THROAT: Denies acute: swelling, difficulty swallowing , pain with swallowing, change in voice. NECK: Denies acute: neck pain, neck swelling, stiff neck. HEART: Denies acute : chest pain, palpitations, LUNGS: Denies acute: SOB, wheezing, cough, hemoptysis ABDOMEN: Denies acute: abdominal pain, Nausea, Vomiting, diarrhea, melena , hematemesis, hematochezia SKIN: Denies acute: rash, redness, lesions, itchiness. EXTREMITIES: Denies acute: calf pain, numbness, tingling, weakness, denies pain in extremity. Denies acute: Low back pain. Neuro: Denies acute: focal neurological deficit, motor or sensory focal neurological deficit, tremors, seizure like activity, confusion, dizziness, change in mental status, loss of bowel or bladder function, cauda equina like symptoms. : Denies acute: dysuria, hematuria, flank pain, increase in urinary frequency. PSYCH: Denies acute: hallucination, suicidal ideation, homicidal ideation. PHYSICAL EXAM: General: no acute distress, awake and alert. Head: normocephalic, atraumatic. Neck: supple, trachea is midline, no swelling. Throat: Normal phonation. Eyes:, no erythema, no purulent discharge, no proptosis, no icterus. Heart: regular rate, regular rhythm, no significant murmur appreciated. Lungs: no apparent respiratory distress, Able to speak in full sentences. No wheezing, no rhonchi, no crackles. No stridors Clear to auscultation bilaterally. Abdomen: non tender to palpation, non distended, soft, no guarding, no rebound, + bowel sounds. Neuro: Awake, Alert, oriented to name, self, situation, follows commands GCS=15. Speech is normal. Skin: no petechia, no purpura, no cyanosis, non-pale, not jaundice. Lower extremities: --no - Pitting edema no deformity, no focal swelling, no calf TTP. Makes eye contact. moves all four extremities. Face: no apparent facial droop. Ambulating in the ED independently. Chief Complaint: Foreign Body Time Seen by MD: 15:30 History of Present Illness: Nurses Notes, Allergies Allergies: Coded Allergies: Hydrocodone (Verified Allergy, Severe, "Anaphylactic Shock", 10/21/22) Home Meds No Active Prescriptions or Reported Meds Information Source: Patient Mode of Arrival: Ambulatory Past Medical History PAST MEDICAL HISTORY: COPD Past Medical History (Other): left leg DVT Surgical History (Other): Bilateral hand finger amputations Family History Family History: Reviewed,noncontributory to illness, No family hx of Cancer, No family hx of DM, No family hx of Heart jennifer Social History Smoker: Non-Smoker Alcohol: Occasionally Drugs: Denies Drug Use Lives In: Home Was a procedure done? Was a procedure done?: No FB Differential Dx Differential Diagnosis: Abrasion, Airway Obstruction, Esophageal Obstruction, Foreign Body, Laceration, Perforation X-Ray, Labs, Meds, VS Vital Signs Date Time Temp Pulse Resp B/P (MAP) Pulse Ox O2 Delivery O2 Flow Rate FiO2 01/06/24 20:31 90 16 119/62 (81) 97 01/06/24 20:25 91 15 128/58 (81) 94 01/06/24 20:10 93 15 114/64 (81) 90 01/06/24 20:05 96 16 108/56 (73) 96 01/06/24 20:00 98 18 100/58 (72) 98 01/06/24 19:56 98.5 101 14 114/62 (79) 94 98.5 01/06/24 19:56 Mask 6.0 94 01/06/24 19:56 101 14 94 Mask 6.0 01/06/24 17:45 78 16 135/80 (98) 95 01/06/24 13:10 98.9 98 20 135/76 (95) 93 Lab Test 01/06/24 15:12 Range/Units White Blood Count 8.1 4.4-10.8 10^3/uL Red Blood Count 5.23 4.5-5.90 10^6/uL Hemoglobin 17.5 13.5-17.5 g/dL Hematocrit 49.4 41.0-53.0 % Mean Corpuscular Volume 94.4 80.0-100.0 fL Mean Corpuscular Hemoglobin 33.4 H 28.0-32.0 pg Mean Corpuscular Hemoglobin Concent 35.4 32.0-36.0 g/dL Red Cell Distribution Width 13.3 11.8-14.3 % Platelet Count 254 140-450 10^3/uL Mean Platelet Volume 8.2 6.9-10.8 fL Neutrophils (%) (Auto) 72.0 37.0-80.0 % Lymphocytes (%) (Auto) 19.9 10.0-50.0 % Monocytes (%) (Auto) 6.7 0.0-12.0 % Eosinophils (%) (Auto) 0.9 0.0-7.0 % Basophils (%) (Auto) 0.5 0.0-2.0 % Neutrophils # (Auto) 5.8 1.6-8.6 10 ^3/uL Lymphocytes # (Auto) 1.6 0.4-5.4 10 ^3/uL Monocytes # (Auto) 0.5 0-1.3 10 ^3/uL Eosinophils # (Auto) 0.1 0-0.8 10 ^3/uL Basophils # (Auto) 0 0-0.2 10 ^3/uL Nucleated Red Blood Cells 0.2 % Prothrombin Time 11.4 9.3-11.8 sec Prothrombin Time INR 1.08 0.9-1.15 Activated Partial Thromboplast Time 26.0 24.5-34.5 SEC Sodium Level 145 136-145 mmol/L Potassium Level 5.2 H 3.5-5.1 mmol/L Chloride Level 109 H 98-107 mmol/L Carbon Dioxide Level 26 20-31 mmol/L Anion Gap 10 5-15 Blood Urea Nitrogen 23 9-23 mg/dL Creatinine 1.31 H 0.700-1.30 mg/dL Glomerular Filtration Rate Calc 60 >90 mL/min BUN/Creatinine Ratio 17.6 10.0-20.0 Serum Glucose 99 74-106 mg/dL Lactic Acid Level 1.6 0.4-2.0 mmol/L Calcium Level 10.6 H 8.7-10.4 mg/dL Total Bilirubin 1.2 H 0.2-1.0 mg/dL Aspartate Amino Transferase (AST) 27 13-40 U/L Alanine Aminotransferase (ALT) 21 7-40 U/L Alkaline Phosphatase 58 46-116 U/L Troponin I High Sensitivity 9 </=54 ng/L Total Protein 8.2 5.7-8.2 g/dL Albumin 4.9 H 3.2-4.8 g/dL Time of 1ST Reevaluation: 15:33 Reevaluation 1ST: Unchanged Time of 2ND Reevaluation: 17:51 (The case was discussed with the GI team (HPI, physical exam, labs and diagnostic tests that were available at the time of disposition, ED course, treatment plan) on the phone. They agreed to come evaluate the patient and performed the procedure. Dr. Dennis. ) Time of 3RD Reevaluation: 21:15 (GI saw patient. Patient underwent removal of the chicken bone which was successfull and was discharged by GI. ) Patient Education/Counseling: Diagnosis, Treatment Family Education/Counseling: No Family Present Comments Patient presented with the above HPI.--food bolus esophageal obstruction----workup was initiated. patient was found with the above mentioned diagnosis. Patient was given: Glucagon, fluids, Zofran, nitroglycerin sublingual Patient ED course and VS have been stabilized. Patient has been reassessed in the ED and remained in a stable condition. Pertinent incidental findings were discussed with the patient and/or family. Patient/family voices understanding and is agreeable with plan. Patient has been observed in the ED adequate length of time to insure improvement/stability. Case discussed with the Gastroenterology who agreed to come and perform the procedure. I placed the patient for admission however patient was discharged home by the GI team. All the reports of any imaging studies that were ordered by myself were reviewed by myself. Departure 1 Departure Time of Disposition: 16:43 Impression: Primary Impression: Foreign body in esophagus Additional Impression: Food impaction of esophagus Disposition: ADMITTED INPATIENT Condition: Guarded e-Prescriptions No Active Prescriptions or Reported Meds Discharged With: Self Critical Care Note Critical Care Time?: Yes (35 min-critical care time only) I personally scribed for KAUSHIK BALTAZAR DO ([email or web address]) on 01/06/24 at 15:39. Electronically submitted by Bethanie Montiel ([facility] I personally scribed for KAUSHIK BALTAZAR DO ([email or web address]) on 01/06/24 at 16:49. Electronically submitted by Bethanie Montiel ([employer] I personally scribed for KAUSHIK BALTAZAR DO ([email or web address]) on 01/06/24 at 21:18. Electronically submitted by Btehanie Montiel ([employer] KAUSHIK BALTAZAR DO Jan 06, 2024 15:39
--- NOTE | 2024-01-06 15:43 | DVH ---
EXAM: CT CHEST WITHOUT CONTRAST History: chicken bone stuck in throat Comparison Study: CT CT ANGIO CHEST CONTRAST on DOS: 05/16/23 TECHNIQUE: Multidetector CT of the chest was performed. Imaging was performed without IV contrast. Ax ial, coronal, and sagittal multiplanar reformats were obtained from the axial data set by the technol ogprincess. Radiation Dose : CTDI vol 11.13 mGy, DLP 427.97 mGy*cm. Findings: Lungs: The lungs are clear. Pleura: Unremarkable Heart/Great vessels: The visualized heart is unremarkable. No cardiomegaly or pericardial effusion. Mediastinum: Unremarkable. Food bolus at the gastroesophageal junction. Mild diffuse wall thickening of the esophagus. Soft tissues/Bones: Mild multilevel degenerative changes of the thoracic spine. No radioopaque foreign bodies. The partially visualized upper abdomen is within normal limits. Impression: 1. No acute cardiopulmonary disease or radioopaque foreign bodies. 2. Mild diffuse wall thickening of the esophagus with a food bolus at the gastroesophageal junction. Correlate for esophagitis.
[2024-01-06 15:50] LABS: Alanine Aminotransferase 21 U/L (7-40); Albumin 4.9 g/dL (3.2-4.8); Alkaline Phosphatase 58 U/L (46-116); Anion Gap 10 (5-15); Aspartate Aminotransferase 27 U/L (13-40); BUN/Creatinine Ratio 17.6 (10.0-20.0); Blood Urea Nitrogen 23 mg/dL (9-23); Calcium 10.6 mg/dL (8.7-10.4); Carbon Dioxide 26 mmol/L (20-31); Chloride 109 mmol/L (98-107); Potassium 5.2 mmol/L (3.5-5.1); Sodium 145 mmol/L (136-145)
[2024-01-06 15:51] LABS: Basophils # (auto) 0 10 ^3/uL (0-0.2); Basophils % (auto) 0.5 % (0.0-2.0); Bilirubin, Total 1.2 mg/dL (0.2-1.0); Eosinophils # (auto) 0.1 10 ^3/uL (0-0.8); Eosinophils % (auto) 0.9 % (0.0-7.0); Hematocrit 49.4 % (41.0-53.0); Hemoglobin 17.5 g/dL (13.5-17.5); Lymphocytes # (auto) 1.6 10 ^3/uL (0.4-5.4); Lymphocytes % (auto) 19.9 % (10.0-50.0); Mean Corpuscular Hemoglobin 33.4 pg (28.0-32.0); Mean Corpuscular Hgb Conc. 35.4 g/dL (32.0-36.0); Mean Corpuscular Volume 94.4 fL (80.0-100.0); Monocytes # (auto) 0.5 10 ^3/uL (0-1.3); Monocytes % (auto) 6.7 % (0.0-12.0); Neutrophils # (auto) 5.8 10 ^3/uL (1.6-8.6); Nucleated Red Blood Cells % 0.2 %; Platelet Count (auto) 254 10^3/uL (140-450); Red Blood Cells 5.23 10^6/uL (4.5-5.90); Red Cell Distribution Width 13.3 % (11.8-14.3); Total Protein 8.2 g/dL (5.7-8.2); White Blood Cell 8.1 10^3/uL (4.4-10.8)
[2024-01-06 15:52] LABS: INR 1.08 (0.9-1.15); Prothrombin Time 11.4 sec (9.3-11.8)
[2024-01-06 15:53] LABS: Glucose 99 mg/dL (74-106)
[2024-01-06 19:56] VITALS: PULSE 101; RESP 14; TEMP 98.5; O2SAT 94
--- NOTE | 2024-01-06 20:02 | DVHINCON2 ---
Date of service: Jan 06, [address] Cooper Reason for Consultation Foreign body impaction (chicken meat) History of Present Illness 68-year-old male with history of foreign body impaction he was eating chicken and got lodged in the throat about two days ago unable to passing saliva also of fluid and hence came to the emergency room patient has got some complaints of throat discomfort unable to swallow saliva also. Has got a COPD but denies shortness of he is on Xarelto for DVT but apparently has not taken the medication for two days because of difficulty swallowing. Denies hematemesis or melena No History of stricture of esophagus Past Medical History Denies similar episodes of food impactions this is a 50 time he is coming in the next last few years for complaints of food impaction. Past Surgical History None Family History: FH: cancer G8 MOTHER G8 FATHER Family History Noncontributory Social History Denies smoking or drinking Allergies: Coded Allergies: Hydrocodone (Verified Allergy, Severe, "Anaphylactic Shock", 10/21/22) Home Meds No Active Prescriptions or Reported Meds Review of Systems Unremarkable Vital Signs Vital Signs Date Time Temp Pulse Resp B/P (MAP) Pulse Ox O2 Delivery O2 Flow Rate FiO2 01/06/24 17:45 78 16 135/80 (98) 95 01/06/24 13:10 98.9 Physical Exam Moderately built and nourished male in no acute distress Uncomfortable with a food impaction and difficulty to swallow even the saliva HEENT exam no pallor no icterus Supple no lymphadenopathy no thyromegaly Bilaterally symmetrical lungs clear Cardiovascular unremarkable Abdomen soft no tenderness no rigidity no guarding no masses Bowel sounds normal Extremities no edema no varicosities no clubbing Labs/Diagnostic Data Labs Test 01/06/24 15:12 Range/Units White Blood Count 8.1 4.4-10.8 10^3/uL Red Blood Count 5.23 4.5-5.90 10^6/uL Hemoglobin 17.5 13.5-17.5 g/dL Hematocrit 49.4 41.0-53.0 % Mean Corpuscular Volume 94.4 80.0-100.0 fL Mean Corpuscular Hemoglobin 33.4 H 28.0-32.0 pg Mean Corpuscular Hemoglobin Concent 35.4 32.0-36.0 g/dL Red Cell Distribution Width 13.3 11.8-14.3 % Platelet Count 254 140-450 10^3/uL Mean Platelet Volume 8.2 6.9-10.8 fL Neutrophils (%) (Auto) 72.0 37.0-80.0 % Lymphocytes (%) (Auto) 19.9 10.0-50.0 % Monocytes (%) (Auto) 6.7 0.0-12.0 % Eosinophils (%) (Auto) 0.9 0.0-7.0 % Basophils (%) (Auto) 0.5 0.0-2.0 % Neutrophils # (Auto) 5.8 1.6-8.6 10 ^3/uL Lymphocytes # (Auto) 1.6 0.4-5.4 10 ^3/uL Monocytes # (Auto) 0.5 0-1.3 10 ^3/uL Eosinophils # (Auto) 0.1 0-0.8 10 ^3/uL Basophils # (Auto) 0 0-0.2 10 ^3/uL Nucleated Red Blood Cells 0.2 % Prothrombin Time 11.4 9.3-11.8 sec Prothrombin Time INR 1.08 0.9-1.15 Activated Partial Thromboplast Time 26.0 24.5-34.5 SEC Sodium Level 145 136-145 mmol/L Potassium Level 5.2 H 3.5-5.1 mmol/L Chloride Level 109 H 98-107 mmol/L Carbon Dioxide Level 26 20-31 mmol/L Anion Gap 10 5-15 Blood Urea Nitrogen 23 9-23 mg/dL Creatinine 1.31 H 0.700-1.30 mg/dL Glomerular Filtration Rate Calc 60 >90 mL/min BUN/Creatinine Ratio 17.6 10.0-20.0 Serum Glucose 99 74-106 mg/dL Lactic Acid Level 1.6 0.4-2.0 mmol/L Calcium Level 10.6 H 8.7-10.4 mg/dL Total Bilirubin 1.2 H 0.2-1.0 mg/dL Aspartate Amino Transferase (AST) 27 13-40 U/L Alanine Aminotransferase (ALT) 21 7-40 U/L Alkaline Phosphatase 58 46-116 U/L Troponin I High Sensitivity 9 </=54 ng/L Total Protein 8.2 5.7-8.2 g/dL Albumin 4.9 H 3.2-4.8 g/dL Assessment 68-year-old male with complaints of food impaction foreign body with meat chicken meat for the last two days. He is not able to eat anything apparently the chicken bone got large about two days ago he is on DVT has got DVT on Xarelto but has not taken for two days. Denied any shortness of breath but has got history of COPD Physical examination unremarkable patient is clinically stable with normal vitals Clinical impression foreign body impaction possibility of esophageal stricture to be can not rule out history of recurrent foreign body impaction about this is a 5th time he is coming for this foreign body impaction as per the patient Plan/Recommendation We will recommend EGD evaluation with anesthesia and formula removal Procedure risks benefits especially the added risks because of the fact that he is on Xarelto has been all discussed and agreeable for the same Thank you Dr. Jeannie Linder discussed with: Patient HYUN FRAGOSO MD Jan 06, 2024 20:02
--- NOTE | 2024-01-06 20:10 | DVHOP2 ---
Operative Report DATE OF PROCEDURE: 01/06/24 INDICATIONS FOR THE PROCEDURE: Foreign Body impaction chicken meat PROCEDURE PERFORMED: 1. Esophagogastroduodenoscopy and foreign body removal POSTOPERATIVE DIAGNOSIS: Large piece of meat stuck in the esophagus from mid esophagus down into the GE junction at least 6 cm to 7 cm long INFORMED CONSENT: The risks and benefits and alternatives were explained to the patient and informed consent was obtained. PROCEDURE IN DETAIL: The procedure was done as an emergency The preop evaluation was done which was unremarkable Seizure was consulted for MAC In the endoscopy room, in OR, mac was given by anesthesiologist . Olympus gastroscope was passed through the oropharynx into the esophagus where a large piece of meat was seen from mid esophagus down This is a large long piece about six 7 cm at least long from mid esophagus down. Attempts with tripod as well as with the Terry basket were unsuccessful because of the large piece of meat With the help of the snare this secondary to small pieces and with the help of the biopsy forceps most of it was taken out and some of it was pushed into the. Stomach No stricture seen but there was lot of esophagitis in the distal esophagus probably from the food impaction No bleeding seen No immediate complications seen after the foreign body removal Stomach: Was visualized on unremarkable no ulcers no pyloric upstroke Pylorus normal Duodenum normal Endoscopic impression Large Piece of meat stuck in the esophagus from mid esophagus down to the GE junction severe dysphagia The piece was removed in piecemeal fashion with a with a snare and the biopsy forceps and the terry basket Mild esophagitis from food stasis in the distal esophagus No stricture seen Suggestions Watch closely for any complications Recommend Pepcid or antacids We will hold off Xarelto for two days Has recommended to the patient to chew very well before eating because of the recurrent food impaction history is the 5th time he is coming with this impaction Thank you for asking me to take part in the care of this pleasant patient With warm regards, HYUN Wynn MD Jan 06, 2024 20:10
[2024-01-06 20:31] VITALS: BP 119/62; PULSE 90; RESP 16; O2SAT 97
--- NOTE | 2024-01-07 03:22 | DVHHPRES ---
History of Present Illness Resident Creating Document: ZAIRA JACOBO RESIDENT Reason for Visit: Food impaction History of Present Illness 68-year-old male patient with a history of COPD and deep venous thrombosis currently on sagittal to, which was stopped 2 days ago due to recent episode of food impaction after eating chicken. The patient presented with severe dysphagia and inability to pass a Cristin, food or fluids for with the ingestion of food, reporting that this is the 5th episode of food impaction in his esophagus. He denied any associated symptoms such as shortness of breath, chest pain, nausea, vomiting or fever. The patient explained that prior similar episodes food impactions were managed in the operating room. On arrival vital signs were stable and no signs of respiratory distress or hemodynamic compromise were observed. The patient was evaluated by Dr. Dennis, who recommended an esophagogastroduodenoscopy under anesthesia for friend body removal periods during the procedure a large piece of meat approximately 6-7 cm long was found noted in the esophagus at the gastroesophageal junction. There were no strictures or signs of bleeding identified, but significant esophagitis was observed, likely secondary to prolonged food impaction. The stomach and tailor's appeared normal on endoscopy, no strictures. The foramen body was successfully removed without immediate complications. Past Surgical History: None Family History: None Smoke: No ALCOHOL: heavy Drugs: None Domestic Violence: Neg Review of Systems Review of Systems Constitutional: No: Fever, Chills, Sweats, Weakness, Malaise, Other Eyes: No: Pain, Vision change, Conjunctivae inflammation, Eyelid inflammation, Other, Redness ENT: No: Ear pain, Ear discharge, Nose pain, Nose discharge, Nose congestion, Mouth pain, Mouth swelling, Throat pain, Throat swelling, Other Respiratory: No Wheezing, Hemoptysis, Pleuritic Pain, Sputum, Wheezing, Other Cardiovascular: No: Chest Pain, Palpitations, Orthopnea, Paroxysmal Noc. Dyspnea, Edema, Lt Headedness, Other Gastrointestinal: No: Nausea, Vomiting, Abdominal Pain, Diarrhea, Constipation, Melena, Hematochezia, Other Musculoskeletal: No: other, neck pain, shoulder pain, arm pain, back pain, hand pain, leg pain, foot pain Neurological:; No: Weakness, Numbness, Incoordination, Change in speech, Confusion, Seizures Allergies: Coded Allergies: Hydrocodone (Verified Allergy, Severe, "Anaphylactic Shock", 10/21/22) Medications Current Medications Medications Dose Ordered Sig/Leanne Route Start Time Stop Time Status Last Admin Dose Admin Sodium Chloride 1,000 ml @ 60 mls/hr [id number] IV 01/06/24 22:00 Acetaminophen 650 mg Q6HP PRN PO 01/06/24 22:00 Pantoprazole Sodium 40 mg DAILY IV 01/07/24 10:00 Exam Vital Signs Vital Signs Date Time Temp Pulse Resp B/P (MAP) Pulse Ox O2 Delivery O2 Flow Rate FiO2 01/06/24 20:31 90 16 119/62 (81) 97 01/06/24 19:56 98.5 98.5 01/06/24 19:56 Mask 6.0 94 Exam General: Moderately built and nourished male with a food impaction and difficulty to swallow even the saliva Respiratory: Clear lungs bilaterally, no crackles no wheezing Cardiovascular: Normal S1-S2, no JVD, regular rate and rhythm Abdomen: Soft nontender nondistended, no rigidity normal bowel sounds Neurological: Oriented x4, normal gait, normal sensation Labs/Xrays Labs Test 01/06/24 15:12 Range/Units White Blood Count 8.1 4.4-10.8 10^3/uL Red Blood Count 5.23 4.5-5.90 10^6/uL Hemoglobin 17.5 13.5-17.5 g/dL Hematocrit 49.4 41.0-53.0 % Mean Corpuscular Volume 94.4 80.0-100.0 fL Mean Corpuscular Hemoglobin 33.4 H 28.0-32.0 pg Mean Corpuscular Hemoglobin Concent 35.4 32.0-36.0 g/dL Red Cell Distribution Width 13.3 11.8-14.3 % Platelet Count 254 140-450 10^3/uL Mean Platelet Volume 8.2 6.9-10.8 fL Neutrophils (%) (Auto) 72.0 37.0-80.0 % Lymphocytes (%) (Auto) 19.9 10.0-50.0 % Monocytes (%) (Auto) 6.7 0.0-12.0 % Eosinophils (%) (Auto) 0.9 0.0-7.0 % Basophils (%) (Auto) 0.5 0.0-2.0 % Neutrophils # (Auto) 5.8 1.6-8.6 10 ^3/uL Lymphocytes # (Auto) 1.6 0.4-5.4 10 ^3/uL Monocytes # (Auto) 0.5 0-1.3 10 ^3/uL Eosinophils # (Auto) 0.1 0-0.8 10 ^3/uL Basophils # (Auto) 0 0-0.2 10 ^3/uL Nucleated Red Blood Cells 0.2 % Prothrombin Time 11.4 9.3-11.8 sec Prothrombin Time INR 1.08 0.9-1.15 Activated Partial Thromboplast Time 26.0 24.5-34.5 SEC Sodium Level 145 136-145 mmol/L Potassium Level 5.2 H 3.5-5.1 mmol/L Chloride Level 109 H 98-107 mmol/L Carbon Dioxide Level 26 20-31 mmol/L Anion Gap 10 5-15 Blood Urea Nitrogen 23 9-23 mg/dL Creatinine 1.31 H 0.700-1.30 mg/dL Glomerular Filtration Rate Calc 60 >90 mL/min BUN/Creatinine Ratio 17.6 10.0-20.0 Serum Glucose 99 74-106 mg/dL Lactic Acid Level 1.6 0.4-2.0 mmol/L Calcium Level 10.6 H 8.7-10.4 mg/dL Total Bilirubin 1.2 H 0.2-1.0 mg/dL Aspartate Amino Transferase (AST) 27 13-40 U/L Alanine Aminotransferase (ALT) 21 7-40 U/L Alkaline Phosphatase 58 46-116 U/L Troponin I High Sensitivity 9 </=54 ng/L Total Protein 8.2 5.7-8.2 g/dL Albumin 4.9 H 3.2-4.8 g/dL Assessment/Plan Assessment/Plan #Recurrent esophageal food impaction likely due to ?esophageal dysmotility -no evidence of strictures, ulcers or structural abnormalities. -Monitor and postprocedure care over the next 24 hours -Initiate PPI inhibitor therapy with pantoprazole 40 mg daily to reduce esophagitis and promote healing. -Advised the patient to chew food thoroughly before swallowing -Consider soft diet to reduced recurrence until follow-up evaluation -Follow-up with GI in the outpatient #Severe dysphagia likely related to esophageal dysmotility? Function esophageal disorder? -same as above #History of COPD -Stable with no current respiratory complaints. #History of DVT -On anticoagulation with Xarelto, currently held due to procedure for the next 2 days. Case discussed with Dr. Caldwell Goals of care discussed with the patient for 41 minutes Code status: Full code Plan discussed with: Patient My Orders Orders - ZAIRA JACOBO RESIDENT Procedure Category Date Status Time Admit ADMIT 01/06/24 Transmitted 21:51 Allergies KHANG 01/06/24 In Process 21:51 Code Status CODE 01/06/24 Transmitted 21:51 Sodium Chloride 0.9% PHA 01/06/24 In Process 22:00 Npo (Nothing By DIET 01/07/24 Transmitted Mouth) Diet Breakfast Acetaminophen Tablet PHA 01/06/24 In Process (Tylenol Tablet) 22:00 Oxygen By Nasal RT 01/06/24 Transmitted Cannula 21:51 Stat Ekg For Chest [facility] 01/06/24 In Process Pain 21:51 Notify Md Of Changes [facility] 01/06/24 In Process From Base 21:51 Director Phone For [facility] 01/06/24 In Process 24 Hours 21:51 Emergency Dysrhythmia [facility] 01/06/24 In Process Protocol 21:51 Rhythm Strips Once [facility] 01/06/24 In Process Every Shift 21:51 Full Liq Diet DIET 01/07/24 Transmitted Breakfast Pantoprazole PHA 01/07/24 In Process (Protonix) 10:00 Date of Service: Jan 06, 2024 Billing Provider: ELENA CALDWELL MD Common Visit Codes: 22339-[id number] INP/OBS CARE (HIGH) Secondary Visit Codes: 83308-[id number] CARE PLAN 30 MINUTES ZAIRA JACOBO RESIDENT Jan 07, 2024 03:22 ELENA CALDWELL MD Jan 07, 2024 08:27
== END | disposition home or self-care (01) ==
LOC: ER 12:46 → SUR 12:47 → UNDOADMIN 21:51 → OVERFLOW 21:51 → ER 21:52
PROVIDERS: ATTEND Internal Medicine Gastroenterology
DX: T18.128A Food in esophagus causing other injury, initial encounter (principal); K20.90 Esophagitis, unspecified without bleeding; R13.10 Dysphagia, unspecified; K59.89 Other specified functional intestinal disorders; W44.F3XA Food entering into or through a natural orifice, initial encounter; Y93.89 Activity, other specified; Y92.89 Other specified places as the place of occurrence of the external cause; Y99.8 Other external cause status; J44.9 Chronic obstructive pulmonary disease, unspecified; Z86.718 Personal history of other venous thrombosis and embolism; Z80.9 Family history of malignant neoplasm, unspecified
CPT/HCPCS: 36415; 43247; 71250; 80053; 83605; 84484; 85025; 85610; 85730; J0330; J2704; J3010; J7030; G0378

== ENCOUNTER → 2024-06-06 | Outpatient (CLI) | payer MEDICARE, MEDICAID ==
--- NOTE | 2024-06-06 20:40 | DVH ---
CLINICAL HISTORY: LBP TECHNIQUE: CT of the lumbar spine was performed without intravenous contrast. This exam was performed according to our departmental dose optimization program. Up-to-date CT equipment and radiation dose reduction techniques are utilized as appropriate. CTDI: 32.2 DLP: 910.68 WID: COMPARISON: None FINDINGS: There are 5 [id number]-jhz-afpvseh lumbar type vertebral bodies. There is minimal retrolisthesis at L5-S1, otherwise normal alignment. The vertebral body heights are maintained. There is no acute fracture. There is mild multilevel lumbar spondylosis with multilevel anterior osteophyte formation. The disc spaces are preserved. No significant stenosis is seen at T12-L1 and L1-L2 There is a diffuse disc bulge at L2-L3 as well as mild facet hypertrophy resulting in mild spinal and mild bilateral neural foraminal stenosis. At L3-L4, there is a diffuse disc bulge and facet hypertrophy as well as mild ligamentum flavum thick ening resulting in feoq-wq-ufmtuwjf spinal stenosis and mild bilateral neural foraminal stenosis. At L4-L5, there is a diffuse disc bulge, ligamentum flavum thickening, and facet hypertrophy resultin g in gqvw-qa-kymfmboz spinal stenosis and mild bilateral neural foraminal stenosis. At L5-S1, there is a diffuse disc bulge, though without significant neural foraminal or or spinal robin nosis. The posterior paraspinal soft tissues are unremarkable. There is mild calcified plaque in the visuali zed aortoiliac vessels. There are left renal sinus cysts. IMPRESSION: 1. No acute fracture or traumatic malalignment. 2. Mild multilevel lumbar spondylosis. 3. Multilevel degenerative spinal stenosis which is up to Zvpn-os-xctdnawv spinal stenosis at L3-L4 and L4-L5. 4. Multilevel mild degenerative neural foraminal stenosis. No high-grade neural foraminal stenosis.
== END | disposition home or self-care (01) ==
LOC: Rad HDHVI 16:06
PROVIDERS: ATTEND Internal Medicine Cardiovascular Disease
DX: M51.360 Other intervertebral disc degeneration, lumbar region with discogenic back pain only (principal); M47.816 Spondylosis without myelopathy or radiculopathy, lumbar region; M48.061 Spinal stenosis, lumbar region without neurogenic claudication; M25.78 Osteophyte, vertebrae; I70.0 Atherosclerosis of aorta; N28.1 Cyst of kidney, acquired
CPT/HCPCS: 72131

== ENCOUNTER 2024-07-18 14:31 | Outpatient (CLI) | payer MEDICARE, MEDICAID | END 2024-07-18 17:00 | disposition home or self-care (01) | LOC: Rad HDHVI 14:31 | PROVIDERS: ATTEND Internal Medicine Cardiovascular Disease | DX: I73.9 Peripheral vascular disease, unspecified (principal) | CPT/HCPCS: 93925 ==